=== PATIENT | male | born 1965 | race American Indian/Alaskan Native ===

== ENCOUNTER 2021-02-11 10:43 | Emergency (ER) | payer OTHER ==
--- NOTE | 2021-02-11 11:37 | Emergency Department Report ---
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 Patient states that he has been seen by multiple healthcare professionals for the same complaint. Patient states that he has been seen [facility] [place]. Patient states his primary care provider he has seen but only through virtual visit. Patient denies any suicidal homicidal ideation. No hematochezia or hematemesis no abdominal pain - Exam Vital Signs: Vital Signs 02/11/21 11:20 Temperature 98.5 F Pulse Rate 63 Respiratory 14 Rate Blood Pressure 133/91 O2 Sat by Pulse 100 Oximetry Physical Exam: General: Awake, appropriately interactive, no acute distress. Neck: Supple. Full range of motion intact. Cardiovascular: Normal peripheral perfusion. Pulmonary: No respiratory distress. Patient is speaking normally without use of accessory muscles. Skin: No apparent rashes or lesions. Neurological: No facial asymmetry. Speech is clear. Follows commands. Patient is alert and oriented. Musculoskeletal: Full range of motion, no crepitus. No tenderness to palpate nonerythematous no edema test appreciated. Able to bear weight and ambulate without difficulty. Distal neurovascular and motor/sensory function is intact. Psych: Cooperative. Appropriate mood and affect. MSE screening note: Focused history and physical exam performed. 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 Patient states that he has been seen by multiple healthcare professionals for the same complaint. Patient states that he has been seen at the [place]. Patient states his primary care provider he has seen but only through virtual visit. Patient denies any suici bradly homicidal ideation. ED Disposition for MSE Disposition: DC-01 TO HOME OR SELFCARE Is pt being admited?: No Does the pt Need Aspirin: No Condition: Stable Additional Instructions: Recommend to follow with a GI specialist information as below. Referrals: [facility] [Provider Group] - 3-5 Days
== END 2021-02-11 12:19 | disposition home or self-care (01) ==
LOC: ED 10:43
DX: B89 Unspecified parasitic disease (principal)
CPT/HCPCS: 99282